=== PATIENT | female | born 1985 | race African-American/Black ===

== ENCOUNTER 2017-02-12 22:11 | Inpatient (IN) | payer MEDICAID, OTHER ==
[~2017-02-12] VITALS: Ht 160 cm; Wt 119.3 kg
--- NOTE | 2017-02-12 22:15 | NUR ---
32 YO FEMALE BB RA. PER EMS, PT WAS FOUND BY PSYCHIATRIC FACILITY NON RESPONSIVE, YELLING NON PURPOSEFUL WORDS, SWINGING ARMS AROUND. PER NURSE PT MAY HAVE TOOK AN UNKNOWN AMOUNT OF UNKNOWN MEDICATION. PT DS TO ER BED, SKIN WARM AND DRY, RR EVEN AND UNLABORED. PT IS NON VERBALE AT THIS TIME, NOT FOLLING ANY OF OUR COMANDS. PT GOWNED, PLACED ON LINE CONSTRUCTION SUPERVISOR. AWAITING ORDERS FROM PROVIDER, WILL CONTINUE TO MONITOR
--- NOTE | 2017-02-12 22:31 | NUR ---
MEDICATED PT ORDERED
[2017-02-12 22:42] LABS: BASOPHILS # (AUTO) 0.1 /CMM (0.0-0.2); BASOPHILS % (AUTO) 0.5 % (0.0-2.0); EOSINOPHILS # (AUTO) 0.2 /CMM (0.0-0.7); EOSINOPHILS % (AUTO) 1.5 % (0.0-6.0); HEMATOCRIT 37 % (33-45); HEMOGLOBIN 11.6 g/dL (11.5-14.8); LYMPHOCYTES # (AUTO) 5.2 /CMM (0.8-4.8); LYMPHOCYTES % (AUTO) 38.8 % (20.0-44.0); MEAN CORPUSCULAR HEMOGLOBIN 24 PG (26.0-33.0); MEAN CORPUSCULAR HGB CONC 31 g/dl (31.0-36.0); MEAN CORPUSCULAR VOLUME 76 fL (82-100); MONOCYTES % (AUTO) 7.4 % (2.0-12.0); NEUTROPHILS # (AUTO) 6.9 /CMM (1.8-8.9); NEUTROPHILS % (AUTO) 51.8 % (43.0-81.0); PLATELET COUNT (AUTO) 316 /CMM (150-450); RDW COEFFICIENT OF VARIATION 19.4 (11.5-15.0); RED BLOOD CELL COUNT(AUTO) 4.94 MIL/uL (4.0-5.2); WHITE BLOOD COUNT (AUTO) 13.4 K/uL (4.3-11.0)
[2017-02-12 22:43] LABS: APPEARANCE,URINE CLEAR (CLEAR); BILIRUBIN,URINE NEGATIVE (NEGATIVE); BLOOD, URINE NEGATIVE Ery/uL (NEGATIVE); KETONES,URINE NEGATIVE (NEGATIVE); LEUKOCYTE ESTERASE ,URINE NEGATIVE (NEGATIVE); NITRITE, URINE NEGATIVE (NEGATIVE); PH,URINE 8.5 (5.0-8.0); PROTEIN,URINE NEGATIVE (NEGATIVE); UGLUCOSE NEGATIVE (NEGATIVE); UROBILINOGEN,URINE 0.2 EU/dL (0.2)
[2017-02-12 22:49] LABS: COLOR,URINE STRAW (YELLOW)
[2017-02-12 22:52] LABS: PREGNANCY TEST URINE QUAL NEGATIVE (NEGATIVE)
[2017-02-12 22:53] LABS: CALCIUM, SERUM 8.9 mg/dL (8.5-10.1); CARBON DIOXIDE 23 mmol/L (21-32); CHLORIDE 105 mmol/L (98-107); CREATININE 0.9 mg/dL (0.6-1.3); GLUCOSE 121 mg/dL (74-106); POTASSIUM 3.7 mmol/L (3.5-5.1); SODIUM SERUM 145 mmol/L (136-145); UREA NITROGEN, BLOOD 10 mg/dL (7-18)
[2017-02-12 22:54] LABS: INR 1.01 (0.87-1.13); PROTHROMBIN TIME 10.8 SECS (9.5-12.7)
[2017-02-12 23:00] LABS: ACETAMINOPHEN 0 ug/ml (10-30); ALANINE AMINOTRANSFERASE 21 U/L (12-78); ALBUMIN 3.9 g/dL (3.4-5.0); ALCOHOL, BLOOD < 3 mg/dL (0-0); ALKALINE PHOSPHATASE 73 U/L (46-116); ASPARTATE AMINOTRANSFERASE 12 U/L (15-37); BILIRUBIN,DIRECT 0.1 mg/dL (0.0-0.2); BILIRUBIN,TOTAL 0.2 mg/dL (0.2-1.0); SALICYLATE 2.5 mg/dL (2.8-20.0); TOTAL PROTEIN, SERUM 7.8 g/dL (6.4-8.2); TROPONIN I < 0.017 ng/mL (0.00-0.056)
[2017-02-12 23:07] LABS: SERUM AMMONIA 210 umol/L (11-32)
[2017-02-13] VITALS (8 sets, daily range): BP systolic 129–154; BP diastolic 74–96
--- NOTE | 2017-02-13 00:20 | NUR ---
NG TUBE PLACED PER ORDER MD VILLASENOR. 16F 65CM AT THE LIP
--- NOTE | 2017-02-13 02:10 | NUR ---
[facility] RN ADMITTING NOTES PATIENT ARRIVED ON UNIT VIA GURNEY TO RM 103. RECEIVED REPORT FROM JOSE FOX. PATIENT AO X1 W/ CONFUSION. BREATHING EVEN AND UNLABORED, NO RESPIRATORY DISTRESS NOTED, ON ROOM AIR. ON TELE SINUS RHYTHM W/ PULSES PRESENT. SKIN INTACT AND WARM TO TOUCH. LEFT AC IV SITE CDI, NO COMPLICATIONS NOTED. SAFETY MEASURES IN PLACE W/ SIDE RAILS UP, BED LOCKED AND IN LOWEST POSITION. ALL NEEDS MET @ THIS TIME. WILL CONTINUE TO MONITOR.
--- NOTE | 2017-02-13 02:18 | NUR ---
TRANSPORTED PT TO [facility] B[facility] WITHOUT INCIDENT
--- NOTE | 2017-02-13 02:30 | NUR ---
[facility] RN NOTES PATIENT AGITATED AND TRYING TO PULL OUT NGT. SPOKE W/ DR PEREZ W/ ORDERS FOR RESTRAINT. BILATERAL SOFT RESTRAINTS APPLIED.
[2017-02-13 06:52] LABS: SERUM AMMONIA 53 umol/L (11-32)
--- NOTE | 2017-02-13 07:40 | NUR ---
[facility] INITIAL NOTE RECEIVED PT IN BED, A/O X1, OPENS EYES TO NAME, DOES NOT FOLLOW COMMANDS, UNABLE TO MAKE NEEDS KNOWN, PT IS ON RA ,SATING 100%, NO S/S OF RESP.DISTRESS OR SOB NOTED AT THIS TIME, BREATHING IS UNLABORED AND EVEN, PT IS ON TELE MONITOR SHOWING SR @85 BPM, NO S/S OF CHEST PAIN OR DISCOMFORT AT THIS TIME, PT HAS L NGT, CLAMPED, FLUSHING WELL, PT HAS BILATERAL WRIST RESTRAINTS, RELEASED AND SKIN CHECK COMPLETED, LAC #18G, RUNNING NS @75ML/HR, C/D/I/PATENT, FLUSHING WELL, NO S/S OF INFECTION/ INFILTRATION NOTED AT THIS TIME, PT IS CURRENTLY NPO AT THIS TIME, ALL SAFETY MEASURES IN PLACE AT ALL TIMES, CALL LIGHT WITHIN EASY REACH, WILL MONITOR PT CLOSELY FOR CHANGES
[2017-02-13 07:55] LABS: VALPROIC ACID 79 ug/mL (50-100)
[2017-02-13] MEDS ORDERED: METF500T4 PO (09:32)
[2017-02-13] MEDS ORDERED: BENA5TAB2 PO (09:32)
[2017-02-13] MEDS ORDERED: LEVO75TA7 PO (09:32)
[2017-02-13] MEDS ORDERED: HYDR-552 PO (09:32)
[2017-02-13] MEDS ORDERED: TRAM50TA2 PO (09:32)
[2017-02-13] MEDS ORDERED: ARIP30TA PO (09:32)
[2017-02-13] MEDS ORDERED: ESCI20TA PO (09:32)
[2017-02-13] MEDS ORDERED: CHLO10TA5 PO (09:32)
[2017-02-13] MEDS ORDERED: METO-295 PO (09:32)
[2017-02-13 09:35] LABS: SERUM AMMONIA 22 umol/L (11-32)
[2017-02-13 09:42] LABS: VALPROIC ACID 88 ug/mL (50-100)
--- NOTE | 2017-02-13 10:04 | NUR ---
KARO contacted [facility] and spoke to Berna who informed KARO that they will accept pt. back once pt. is medically cleared. Berna requested for KARO to fax clinicals.
--- NOTE | 2017-02-13 10:28 | NUR ---
SW attempted to meet with pt. bedside for a social service consult and to inquire with pt. if she would like to go back to [facility] psychiatric facility. SW was unable to assess pt. since she was unable to follow commands and was asleep. SW attempted to wake pt. up but was not successful. SW to follow up later this afternoon to reassess.
--- NOTE | 2017-02-13 11:40 | NUR ---
[facility] NOTE NG TUBE REMOVED, PT IS VERBALIZING SHE WANTS TO HARM HERSELF BUT HAS NO PLAN. AWARE
[2017-02-13 11:43] LABS: BASOPHILS # (AUTO) 0.1 /CMM (0.0-0.2); BASOPHILS % (AUTO) 0.3 % (0.0-2.0); EOSINOPHILS # (AUTO) 0.1 /CMM (0.0-0.7); EOSINOPHILS % (AUTO) 0.9 % (0.0-6.0); HEMATOCRIT 36 % (33-45); HEMOGLOBIN 11.3 g/dL (11.5-14.8); LYMPHOCYTES # (AUTO) 4.7 /CMM (0.8-4.8); LYMPHOCYTES % (AUTO) 31.1 % (20.0-44.0); MEAN CORPUSCULAR HEMOGLOBIN 24 PG (26.0-33.0); MEAN CORPUSCULAR HGB CONC 32 g/dl (31.0-36.0); MEAN CORPUSCULAR VOLUME 75 fL (82-100); MONOCYTES # (AUTO) 1.3 /CMM (0.1-1.30); MONOCYTES % (AUTO) 8.7 % (2.0-12.0); NEUTROPHILS # (AUTO) 8.9 /CMM (1.8-8.9); PLATELET COUNT (AUTO) 302 /CMM (150-450); RDW COEFFICIENT OF VARIATION 19.5 (11.5-15.0); RED BLOOD CELL COUNT(AUTO) 4.76 MIL/uL (4.0-5.2); WHITE BLOOD COUNT (AUTO) 15.1 K/uL (4.3-11.0)
[2017-02-13 11:47] LABS: CALCIUM, SERUM 8.5 mg/dL (8.5-10.1); CREATININE 0.7 mg/dL (0.6-1.3); POTASSIUM 4.7 mmol/L (3.5-5.1)
--- NOTE | 2017-02-13 12:00 | NUR ---
[facility] NOTE KEEGAN QUIROZ MADE ROUNDS, AWARE OF ALL LABS AND RESULTS, MD AWARE OF PTS STATUS, PSYCH CONSULT AND 1:1 SITTER ORDERED.
[2017-02-13 13:11] LABS: SERUM AMMONIA 13 umol/L (11-32)
[2017-02-13 13:15] LABS: VALPROIC ACID 86 ug/mL (50-100)
--- NOTE | 2017-02-13 16:27 | NUR ---
[facility] NOTE MRSA CULTURE TAKEN, URINE COLLECTED AND SENT TO LAB
[2017-02-13 17:48] LABS: SERUM AMMONIA 43 umol/L (11-32)
[2017-02-13 19:13] LABS: VALPROIC ACID 83 ug/mL (50-100)
--- NOTE | 2017-02-13 19:15 | NUR ---
RN:TD: PT RECEIVED IN BED, ALERT X2. PT CONFUSED, DOES NOT KNOW WHY SHE IS IN THE HOSPITAL. PT CURRENTLY DENIES ANY SUICIDAL IDEATION AT THIS TIME. PT STATES "I WILL BE GOOD" AND REQUESTS A JUICE. 1:1 SITTER AT BEDSIDE. SUICIDE/FALL/ASPIRATION PRECAUTIONS IN PLACE. WILL CONTINUE TO MONITOR CLOSELY.
[2017-02-13 20:31] LABS: VALPROIC ACID 72 ug/mL (50-100)
[2017-02-13 20:32] LABS: SERUM AMMONIA 28 umol/L (11-32)
[2017-02-14] VITALS: BP 134/85
[2017-02-14 04:00] VITALS: BP 118/77
--- NOTE | 2017-02-14 07:15 | NUR ---
SURFACE MINER NOTES RECEIVED PATIENT AWAKE ALERT X 1 -2 RE ORIENTATION PROVIDED , DELAYED SPEECH , DENIES SUICIDAL AND HOMICIDAL IDEATION AT THIS TIME , NOT IN ACUTE DISTRESS , DENIES SOB AND DISCOMFORT AT THIS TIME WITH SPO2 OF 99% VIA RA , SR 63 ON TELE MONITOR , IV OF L AC # 18 PATENT AND INTACT WITH 1/2 NS @ 75ML/HR INFUSING WELL , ALL NEEDS ATTENDED , BED ON LOW AND LOCKED POSITION , SIDE RAILS X2 , HOB @ 35 , ALARMS MADE AUDIBLE , WILL CONTINUE TO MONITOR
[2017-02-14 07:38] LABS: BASOPHILS % (AUTO) 0.4 % (0.0-2.0); EOSINOPHILS # (AUTO) 0.1 /CMM (0.0-0.7); EOSINOPHILS % (AUTO) 1.3 % (0.0-6.0); HEMATOCRIT 37 % (33-45); LYMPHOCYTES # (AUTO) 4.4 /CMM (0.8-4.8); LYMPHOCYTES % (AUTO) 44.8 % (20.0-44.0); MEAN CORPUSCULAR HEMOGLOBIN 24 PG (26.0-33.0); MEAN CORPUSCULAR HGB CONC 33 g/dl (31.0-36.0); MEAN CORPUSCULAR VOLUME 75 fL (82-100); MONOCYTES # (AUTO) 0.7 /CMM (0.1-1.30); MONOCYTES % (AUTO) 7.4 % (2.0-12.0); NEUTROPHILS # (AUTO) 4.6 /CMM (1.8-8.9); NEUTROPHILS % (AUTO) 46.1 % (43.0-81.0); PLATELET COUNT (AUTO) 306 /CMM (150-450); RED BLOOD CELL COUNT(AUTO) 4.91 MIL/uL (4.0-5.2); WHITE BLOOD COUNT (AUTO) 9.9 K/uL (4.3-11.0)
[2017-02-14 08:00] VITALS: BP 115/94
[2017-02-14 08:11] LABS: CALCIUM, SERUM 8.3 mg/dL (8.5-10.1); CREATININE 0.6 mg/dL (0.6-1.3); MAGNESIUM 1.8 mg/dL (1.8-2.4); PHOSPHORUS 4.4 mg/dL (2.5-4.9); POTASSIUM 4.3 mmol/L (3.5-5.1)
--- NOTE | 2017-02-14 08:45 | NUR ---
WOUND CARE CONSULT: PT VERY DROWSY AND WEARING DIAPER (CLEAN AND DRY). CURRENT CASE SCORE 14. PT NOTED TO HAVE RESOLVED BLISTERS TO BILATERAL GREAT TOES, NO DRAINAGE, REDNESS OR TENDERNESS. SACRAL SCARRING NOTED. ALL SKIN PROTECTION MEASURES IN PLACE AND DISCUSSED WITH NURSING STAFF. WILL SEE PRN. LAKE IN AGREEMENT WITH PLAN OF CARE. Addendum: 02/14/17 at 0846 by DI GRUBER WNDNU Amended: Links added.
--- NOTE | 2017-02-14 10:49 | NUR ---
KARO contacted Berna in intake at [facility] to inquire if they would take pt. Berna informed SW they would and to fax clinicals. KARO faxed clinicals at .
--- NOTE | 2017-02-14 12:10 | NUR ---
[facility] RN NOTES DR MADRID AT BEDSIDE , DISCUSSED LABS , PT IS MORE AWAKE ALERT X 2-3 , ROUTINE PSYCH MEDS GIVEN , DENIES SUICIDAL AND HOMICIDAL IDEATION AT THIS TIME , AFEBRILE , V/S STABLE , NOTED WITH UNSTEADY GAIT DUE TO LOWER EXTREMITY WEAKNESS , PER MD ORDER PT EVAL , MEDICALLY CLEARED , BUT WILL STAY FOR ONE MORE DAY PER MD , NOTIFIED REGARDING TRANSFER PLAN TO [facility] MD AWARE .
--- NOTE | 2017-02-14 13:06 | NUR ---
[facility] RN NOTES RECEIVED A CALL FROM [facility] , DISCUSSED LABS , PT IS MORE AWAKE ALERT ORIENTED 2-3 ,
--- NOTE | 2017-02-14 15:12 | NUR ---
[facility] RN NOTES DR JOSEPH AT BEDSIDE , SEEN AND EVALUATED THE PT , DISCUSSED PT LABS , HISTORY , PT DENIES ANY SUICIDAL AND HOMICIDAL IDEATION AT THIS TIME , VERIFIED IF SHE WANTS TO DC 1:1 [facility] , [facility] FAXED HOME MEDS , VERIFIED MEDICATIONS WITH DR JOSEPH PER CONTINUE CHLORPROMAZINE 100MG BID AND HS , RESTORIL 15MG HS PRN , AND VERIFY WITH DR CORTES IF SHE WANTS TO CONTINUE DEPAKOTE EXTENDED RELEASE 500MG TID , ORDERS CARRIED OUT Addendum: 02/14/17 at 1516 by CANDY SOLIZ RN PATIENT IS MORE AWAKE ALERT X2-3 .
--- NOTE | 2017-02-14 15:21 | NUR ---
[facility] RN NOTES CALLED MEDICATION RECON NURSE TO UPDATE HOME MEDICATIONS , [facility] FA[facility] HOME MEDS
[2017-02-14] MEDS ORDERED: DIVA500T7 PO (15:34)
[2017-02-14] MEDS ORDERED: D-ME118S12 PO (15:34)
[2017-02-14] MEDS ORDERED: LORA1TAB82 PO (15:34)
[2017-02-14] MEDS ORDERED: LEVO100T9 PO (15:34)
[2017-02-14] MEDS ORDERED: TEMA15CA PO (15:34)
[2017-02-14] MEDS ORDERED: CHLO100T24 PO ×2 (15:34)
[2017-02-14] MEDS ORDERED: HYDR-3658 PO (15:34)
[2017-02-14] MEDS ORDERED: FOLI1TAB16 PO (15:34)
[2017-02-14 16:00] VITALS: BP 125/75
--- NOTE | 2017-02-14 19:15 | NUR ---
MS RN NOTES RECEIVED ON BED A/O X 2-3.ABLE TO VERBALIZED NEEDS.PRESENT IVF INFUSING WELL VIA IV PUMP ON LEFT AC,SITE PATENT.DVT PUMP IN USED FOR DVT PROPHYLAXIS.SITTER AT BEDSIDE FOR SAFETY,AND PATIENT ON SUICIDAL PRECAUTION.CALL LIGHT IN REACH,NEEDS ANTICIPATED.
[2017-02-14 20:00] VITALS: BP 124/95
[2017-02-14 20:07] VITALS: BP 124/95
--- NOTE | 2017-02-14 21:10 | NUR ---
MS1 RN NOTES C/O INSOMNIA.AMBIEN 5MG PO GIVEN.
--- NOTE | 2017-02-15 02:00 | NUR ---
MS1 RN NOTES SOUND ASLEEP,SITTER AT BEDSIDE.
[2017-02-15 04:00] VITALS: BP 130/87
[2017-02-15 04:24] VITALS: BP 130/87
--- NOTE | 2017-02-15 07:10 | NUR ---
RN INITIAL NOTE PATIENT RECEIVED IN BED, AWAKE, ALERT AND ORIENTED. ABLE TO MAKE NEEDS KNOWN. SITTER AT BEDSIDE. NO S/S OF PAIN OR DISCOMFORT. DENIES PAIN AT THIS TIME. RESPIRATIONS ARE EVEN AND UNLABORED. NO S/S OF RESPIRATORY DISTRESS OR SOB. SATING WELL ON ROOM AIR. IV SITE FLUSHED, PATENT. SKIN IS WARM AND DRY TO TOUCH. SAFETY PRECAUTIONS IMPLEMENTED. BED IN LOCKED, LOW POSITION WITH TWO SIDE RAILS UP. CALL LIGHT AND BELONGINGS WITHIN EASY REACH. POSSIBLE DC TODAY. WILL MONITOR CLOSELY
--- NOTE | 2017-02-15 07:13 | NUR ---
MS1 RN NOTES SLEPT MOST OF THE NIGHT,MORE ALERT,ABLE TO VERBALIZED NEEDS.POSSIBLE D/C BACK TO [facility] TODAY.IN NO ACUTE DISTRESS.ENDORSED TO MONICA FOX FOR AJ.
[2017-02-15 08:00] VITALS: BP 130/78
[2017-02-15 08:09] LABS: BASOPHILS # (AUTO) 0.1 /CMM (0.0-0.2); BASOPHILS % (AUTO) 0.5 % (0.0-2.0); EOSINOPHILS # (AUTO) 0.1 /CMM (0.0-0.7); EOSINOPHILS % (AUTO) 1.2 % (0.0-6.0); HEMATOCRIT 38 % (33-45); HEMOGLOBIN 12.3 g/dL (11.5-14.8); LYMPHOCYTES # (AUTO) 5.9 /CMM (0.8-4.8); LYMPHOCYTES % (AUTO) 47.9 % (20.0-44.0); MEAN CORPUSCULAR HEMOGLOBIN 24 PG (26.0-33.0); MEAN CORPUSCULAR HGB CONC 32 g/dl (31.0-36.0); MEAN CORPUSCULAR VOLUME 75 fL (82-100); MONOCYTES # (AUTO) 1.2 /CMM (0.1-1.30); MONOCYTES % (AUTO) 9.5 % (2.0-12.0); NEUTROPHILS % (AUTO) 40.9 % (43.0-81.0); PLATELET COUNT (AUTO) 304 /CMM (150-450); RDW COEFFICIENT OF VARIATION 19.6 (11.5-15.0); RED BLOOD CELL COUNT(AUTO) 5.11 MIL/uL (4.0-5.2); WHITE BLOOD COUNT (AUTO) 12.3 K/uL (4.3-11.0)
[2017-02-15 08:21] LABS: CREATININE 0.6 mg/dL (0.6-1.3); POTASSIUM 4.1 mmol/L (3.5-5.1)
[2017-02-15 08:47] LABS: MAGNESIUM 1.6 mg/dL (1.8-2.4); PHOSPHORUS 4.4 mg/dL (2.5-4.9)
--- NOTE | 2017-02-15 09:49 | NUR ---
KARO faxed clinicals to intake at [facility] .
--- NOTE | 2017-02-15 10:10 | NUR ---
KARO spoke to Luisa in intake at [facility] inquiring if she received clinicals that KARO faxed to her. Luisa confirmed that she received the clinicals. KARO informed Luisa she will fax her the discharge note stating " pt. is medically cleared" once KARO receives the discharge order from Dr. Flores.
--- NOTE | 2017-02-15 10:14 | NUR ---
KARO met with pt. to confirm discharge plan to [facility] for continuation of psychiatric care. Pt. is alert and oriented x 3. Pt. appears anxious and states she wants to go back to [facility] [place] [facility]. Pt. continues to have suicidal ideations with no plan at this time. Pt. has a sitter bedside. Pt. denies homicidal ideations and visual hallucinations at this time. Pt. states she is having auditory hallucinations at this time which are informing her to "jump off the floor". Pt. appears to have some developmental delays, however pt. states she is not a consumer of the [facility]. Pt. is homeless and has been homeless since August. Prior to being homeless, pt. was residing at a [facility], which was converted to [facility] clients only. Pt. states she has no family support. Pt. has a boyfriend Kory Brown. His contact number is . Pt. states she would like to speak to him. KARO informed pt. the sitter will assist pt. in calling her boyfriend. Pt. has had several psychiatric hospitalizations in the past. Pt. has a psychiatric diagnosis of Schizophrenia and her medications include Abilify 30mg, Lexapro 20 Mg and Thorazine, unknown dosage amount. Pt. is linked with [facility] and they are assisting pt. in finding appropriate housing. Pt. was evaluated at [facility] by psychiatrist Dr. Kendrick. No other social service needs are requested at this time. KARO informed ELAINA Johnson to have " medically cleared" stated in discharge summary. KARO contacted Nay Burton at [facility] program and left her a voicemail message inquiring if she will be able to assist pt. with services. Addendum: 02/15/17 at 1036 by DEJUAN HUDDLESTON Pt. informed SW she does not drink alcohol or consume drugs. Pt. smokes a pack of cigarettes per day. Pt. is her own decision maker and does not have an advance healthcare directive.
--- NOTE | 2017-02-15 14:38 | NUR ---
KARO received a call back from Nay Burton at [facility]ip[facility] program who informed SW she will come around 4PM to assess patient. KARO called [facility] ELAINA Johnson and informed her regarding Nay coming to assess patient.
[2017-02-15 16:00] VITALS: BP 123/71
[2017-02-15 16:44] LABS: APPEARANCE,URINE CLEAR (CLEAR); BILIRUBIN,URINE NEGATIVE (NEGATIVE); BLOOD, URINE NEGATIVE Ery/uL (NEGATIVE); COLOR,URINE YELLOW (YELLOW); KETONES,URINE NEGATIVE (NEGATIVE); LEUKOCYTE ESTERASE ,URINE NEGATIVE (NEGATIVE); NITRITE, URINE NEGATIVE (NEGATIVE); PROTEIN,URINE NEGATIVE (NEGATIVE); UGLUCOSE NEGATIVE (NEGATIVE); UROBILINOGEN,URINE 0.2 EU/dL (0.2)
--- NOTE | 2017-02-15 19:01 | NUR ---
RN CLOSING NOTE ALL MD ORDERS CARRIED OUT. PATIENT KEPT CLEAN AND DRY. SAFETY PRECAUTIONS IN PLACE AT ALL TIMES. REPORT WILL BE GIVEN TO PM RN FOR AJ
--- NOTE | 2017-02-15 19:30 | NUR ---
RN NOTES RECEIVED PT. AWAKE ON BED, A/OX2-3, SITTER AT BEDSIDE, AMBULATE WITH ASSIST, DENEIS PAIN, NO SOB, CALL LIGHT WITHIN REACH, SIDERALS UPX2 CONTINUE TO MONITOR
--- NOTE | 2017-02-15 20:00 | NUR ---
RN NOTES OFFERED PT. TO BE HOOKED BACK TO IV FLUID BUT PT. IS REFUSING
[2017-02-15 20:30] VITALS: BP 135/78
--- NOTE | 2017-02-16 02:45 | NUR ---
RN NOTES 8INFORMED DR. STAN ANGELO THAT PT IS REFUSING IV FLUID AND PT IS TAKING PO WELL. DR. STAN ANGELO D/C THE IV FLUID, ORDER NOTED AND CARRIED OUT
[2017-02-16 06:00] VITALS: BP 120/70
--- NOTE | 2017-02-16 06:22 | NUR ---
RN NOTES PT IS AWAKE, MORNING CARE RENDERED, DENIES PAIN, NO SOB, SITTER AT BEDSIDE, PT. NEEDS ATTENDED. ENDORSED TO DAYSHIFT NURSE FOR CONTINUITY OF CARE
[2017-02-16 07:08] LABS: BASOPHILS # (AUTO) 0.1 /CMM (0.0-0.2); BASOPHILS % (AUTO) 0.7 % (0.0-2.0); EOSINOPHILS # (AUTO) 0.2 /CMM (0.0-0.7); EOSINOPHILS % (AUTO) 1.4 % (0.0-6.0); HEMATOCRIT 39 % (33-45); HEMOGLOBIN 12.4 g/dL (11.5-14.8); LYMPHOCYTES # (AUTO) 5.8 /CMM (0.8-4.8); LYMPHOCYTES % (AUTO) 44.9 % (20.0-44.0); MEAN CORPUSCULAR HEMOGLOBIN 24 PG (26.0-33.0); MEAN CORPUSCULAR HGB CONC 32 g/dl (31.0-36.0); MEAN CORPUSCULAR VOLUME 75 fL (82-100); MONOCYTES # (AUTO) 1.3 /CMM (0.1-1.30); MONOCYTES % (AUTO) 9.8 % (2.0-12.0); NEUTROPHILS # (AUTO) 5.5 /CMM (1.8-8.9); NEUTROPHILS % (AUTO) 43.2 % (43.0-81.0); PLATELET COUNT (AUTO) 291 /CMM (150-450); RDW COEFFICIENT OF VARIATION 19.5 (11.5-15.0); RED BLOOD CELL COUNT(AUTO) 5.13 MIL/uL (4.0-5.2); WHITE BLOOD COUNT (AUTO) 12.8 K/uL (4.3-11.0)
--- NOTE | 2017-02-16 07:10 | NUR ---
RN INITIAL NOTE PATIENT RECEIVED SITTING UP IN BED. AWAKE, ALERT AND ORIENTED. ABLE TO MAKE NEEDS KNOWN. NO S/S OF PAIN OR DISCOMFORT. DENIES PAIN AT THIS TIME. RESPIRATIONS ARE EVEN AND UNLABORED. NO S/S OF RESPIRATORY DISTRESS OR SOB. SATING WELL ON ROOM AIR. IV SITE FLUSHED, PATENT. SKIN IS WARM AND DRY TO TOUCH. SAFETY PRECAUTIONS IMPLEMENTED. BED IN LOCKED, LOW POSITION. SITTER AT BEDSIDE. WILL MONITOR CLOSELY.
[2017-02-16 07:30] LABS: CALCIUM, SERUM 8.8 mg/dL (8.5-10.1); CREATININE 0.7 mg/dL (0.6-1.3); MAGNESIUM 1.9 mg/dL (1.8-2.4); PHOSPHORUS 5.1 mg/dL (2.5-4.9); POTASSIUM 4.1 mmol/L (3.5-5.1)
[2017-02-16 08:00] VITALS: BP 120/70
[2017-02-16] MEDS ORDERED: LEVO75TA PO (09:47)
[2017-02-16 16:00] VITALS: BP 125/69
--- NOTE | 2017-02-16 18:17 | NUR ---
RN CLOSING NOTE PATIENT DISCHARGED TO [facility] IN [place]. LEFT VIA AMBULANCE. REPORT CALLED INTO RUDDY EDDY. ALL MD ORDERS CARRIED OUT. IV SITE DISCONTINUED.
== END 2017-02-16 17:21 | DRG 812 ==
LOC: ER 22:12 → TELE1 02-13 01:34 → TELE-TD 02-13 02:36 → MEDSG1 02-14 11:37
PROVIDERS: ADMIT Internal Medicine; ATTEND Internal Medicine
DX: T42.6X1A Poisoning by other antiepileptic and sedative-hypnotic drugs, accidental (unintentional), initial encounter (principal); G93.41 Metabolic encephalopathy; E72.20 Disorder of urea cycle metabolism, unspecified; R45.851 Suicidal ideations; R56.9 Unspecified convulsions; F32.9 Major depressive disorder, single episode, unspecified; E11.9 Type 2 diabetes mellitus without complications; R41.83 Borderline intellectual functioning; Z59.0 Homelessness; N32.81 Overactive bladder; K21.9 Gastro-esophageal reflux disease without esophagitis; J45.909 Unspecified asthma, uncomplicated; I10 Essential (primary) hypertension; G89.29 Other chronic pain; F20.0 Paranoid schizophrenia; E03.9 Hypothyroidism, unspecified; Z88.1 Allergy status to other antibiotic agents; Z88.0 Allergy status to penicillin; Z88.8 Allergy status to other drugs, medicaments and biological substances; Y92.129 Unspecified place in nursing home as the place of occurrence of the external cause; Z68.42 Body mass index [BMI] 45.0-49.9, adult
CPT/HCPCS: 36415; 70450-TC; 71010-TC; 80048-TC; 80076-TC; 80164-TC; 80305; 81000-TC; 82140-TC; 82962-TC; 83735-TC; 84100-TC; 84484-TC; 84703-TC; 85025-TC; 85730-TC; 87040-TC; 87081-TC; 87086-TC; A4606; A6403; G0480; J2060; J2405; J3475; J3490; J7030; Q0161; Z7610

== ENCOUNTER 2017-09-16 09:33 | Emergency (ER) | payer MEDICAID, OTHER ==
[~2017-09-16] VITALS: Ht 170.2 cm; Wt 122.0 kg
[~2017-09-16 09:33] MED LIST: ARIP30TA3 PO; BENA5TAB5 PO; CHLO100T24 PO; D-ME118S12 PO; ESCI20TA PO; FOLI1TAB16 PO; HYDR-3980 PO; LEVO100T9 PO; LORA-259 PO; METF-440 PO; METO-295 PO; TEMA15CA PO; TRAM50TA2 PO
--- NOTE | 2017-09-16 09:33 | NUR ---
ABD PAIN, N/V X 2 DAYS TAKING ZOFRAN WITH NO RELIEF
[2017-09-16] MEDS ORDERED: ONDANSETRON HCL/PF 4 MG/2 ML VIAL ONE (09:55)
[2017-09-16] MEDS ORDERED: IV NS 0.9% 1,000 ML BAG IV ONE (10:00)
[2017-09-16] MEDS ORDERED: ONDANSETRON HCL/PF 4 MG/2 ML VIAL IVP ONE (10:00)
[2017-09-16 10:02] LABS: BASOPHILS # (AUTO) 0.1 /CMM (0.0-0.2); BASOPHILS % (AUTO) 1.3 % (0.0-2.0); EOSINOPHILS % (AUTO) 3.1 % (0.0-6.0); HEMATOCRIT 38 % (33-45); HEMOGLOBIN 12.2 g/dL (11.5-14.8); LYMPHOCYTES # (AUTO) 3.6 /CMM (0.8-4.8); LYMPHOCYTES % (AUTO) 37.9 % (20.0-44.0); MEAN CORPUSCULAR HGB CONC 32 g/dl (31.0-36.0); MEAN CORPUSCULAR VOLUME 70 fL (82-100); MONOCYTES # (AUTO) 0.9 /CMM (0.1-1.30); NEUTROPHILS # (AUTO) 4.6 /CMM (1.8-8.9); NEUTROPHILS % (AUTO) 47.7 % (43.0-81.0); PLATELET COUNT (AUTO) 300 /CMM (150-450); RDW COEFFICIENT OF VARIATION 21.1 (11.5-15.0); RED BLOOD CELL COUNT(AUTO) 5.49 MIL/uL (4.0-5.2); WHITE BLOOD COUNT (AUTO) 9.5 K/uL (4.3-11.0)
[2017-09-16 10:09] LABS: CALCIUM, SERUM 8.9 mg/dL (8.5-10.1); CREATININE 0.5 mg/dL (0.6-1.3)
[2017-09-16 10:14] LABS: ALBUMIN 3.6 g/dL (3.4-5.0); BILIRUBIN,DIRECT 0.1 mg/dL (0.0-0.2); BILIRUBIN,TOTAL 0.3 mg/dL (0.2-1.0); TOTAL PROTEIN, SERUM 7.6 g/dL (6.4-8.2)
[2017-09-16 10:33] LABS: APPEARANCE,URINE Slightly Cloudy (CLEAR); BILIRUBIN,URINE SMALL (NEGATIVE); BLOOD, URINE Negative Ery/uL (NEGATIVE); COLOR,URINE Yellow (YELLOW); KETONES,URINE Negative (NEGATIVE); LEUKOCYTE ESTERASE ,URINE Negative (NEGATIVE); NITRITE, URINE Negative (NEGATIVE); PROTEIN,URINE Negative (NEGATIVE); UGLUCOSE Negative (NEGATIVE)
[2017-09-16 10:40] LABS: RBC,URINE 0-2 /HPF (0-2)
[2017-09-16 10:41] LABS: BACTERIA,URINE 2+ /HPF (None Seen); SQUAMOUS EPITHELIAL CELL,UR Many /HPF (None Seen)
[2017-09-16 10:52] LABS: EOSINOPHILS % (MANUAL) 1 % (0-4); LYMPHOCYTES % (MANUAL) 38 % (16-48); MONOCYTES % (MANUAL) 12 % (0-11.0); NEUTROPHILS % (MANUAL) 49 (42-76)
--- NOTE | 2017-09-16 10:57 | NUR ---
Patient discharged to home in stable condition. Written and verbal after care instructions given. Patient verbalizes understanding of instruction.
--- NOTE | 2017-09-16 10:57 | NUR ---
IV removed. Catheter intact and site benign. Pressure and 4x4 applied to site. No bleeding noted.
[2017-09-16 10:58] VITALS: BP 130/75
== END 2017-09-16 11:00 | disposition home or self-care (01) ==
LOC: ER 09:35
DX: R11.2 Nausea with vomiting, unspecified (principal); E03.9 Hypothyroidism, unspecified; E11.9 Type 2 diabetes mellitus without complications; F32.9 Major depressive disorder, single episode, unspecified; I10 Essential (primary) hypertension; F17.200 Nicotine dependence, unspecified, uncomplicated; K21.9 Gastro-esophageal reflux disease without esophagitis; N32.81 Overactive bladder; Z88.0 Allergy status to penicillin; Z88.8 Allergy status to other drugs, medicaments and biological substances
CPT/HCPCS: 36415; 80048-TC; 80076-TC; 81000-TC; 83690-TC; 84703-TC; 85025-TC; 87086-TC; A4606; J2405; J7030; Z7610

== ENCOUNTER 2018-03-10 12:09 | Emergency (ER) | payer OTHER ==
[~2018-03-10] VITALS: Ht 167.6 cm; Wt 95.3 kg
[2018-03-10] MEDS ORDERED: IV NS 0.9% 1,000 ML BAG IV ONE (12:30)
[2018-03-10] MEDS ORDERED: OLANZAPINE 10 MG VIAL IM ONE ×2 (12:47→13:00)
--- NOTE | 2018-03-10 12:50 | NUR ---
BIBRA60 PT STATES "I OVERDOSED ON 40 PILLS OF BUSPIRONE 15MG". NOTED AGITATED WHEN BEING EVALUATED. KICKING AND SCREAMING. RESTRAINTS PLACED SAFELY PER MD ORDER. VSS. SAFETY AND COMFORT MEASURES PROVIDED. WILL MONITOR.
[2018-03-10] MEDS ORDERED: LORAZEPAM INJ 2 MG/ML VIAL IM ONE (13:00)
--- NOTE | 2018-03-10 13:10 | NUR ---
IV ACCESS STARTED. BLOOD DRAWN. MEDICATED ORDERED. URINE SAMPLE OBTAINED VIA IN AND OUT CATH. URINE SAMPLE SENT.
[2018-03-10] MEDS ORDERED: LORAZEPAM INJ 2 MG/ML VIAL ONE (13:13)
[2018-03-10 13:20] LABS: BASOPHILS # (AUTO) 0.1 /CMM (0.0-0.2); BASOPHILS % (AUTO) 0.6 % (0.0-2.0); EOSINOPHILS % (AUTO) 0.4 % (0.0-6.0); HEMATOCRIT 41 % (33-45); HEMOGLOBIN 12.6 g/dL (11.5-14.8); LYMPHOCYTES # (AUTO) 4.5 /CMM (0.8-4.8); LYMPHOCYTES % (AUTO) 35.2 % (20.0-44.0); MEAN CORPUSCULAR HEMOGLOBIN 22 PG (26.0-33.0); MEAN CORPUSCULAR HGB CONC 30 g/dl (31.0-36.0); MEAN CORPUSCULAR VOLUME 73 fL (82-100); MONOCYTES # (AUTO) 1.1 /CMM (0.1-1.30); MONOCYTES % (AUTO) 8.5 % (2.0-12.0); NEUTROPHILS % (AUTO) 55.3 % (43.0-81.0); PLATELET COUNT (AUTO) 360 /CMM (150-450); RDW COEFFICIENT OF VARIATION 20.4 (11.5-15.0); RED BLOOD CELL COUNT(AUTO) 5.65 MIL/uL (4.0-5.2); WHITE BLOOD COUNT (AUTO) 12.8 K/uL (4.3-11.0)
[2018-03-10 13:23] LABS: APPEARANCE,URINE Clear (CLEAR); BILIRUBIN,URINE Negative (NEGATIVE); BLOOD, URINE Negative Ery/uL (NEGATIVE); COLOR,URINE Yellow (YELLOW); KETONES,URINE Negative (NEGATIVE); LEUKOCYTE ESTERASE ,URINE Small (NEGATIVE); NITRITE, URINE Positive (NEGATIVE); PH,URINE 6.5 (5.0-8.0); PROTEIN,URINE 30 mg/dl (NEGATIVE); UGLUCOSE Negative (NEGATIVE); UROBILINOGEN,URINE 0.2 EU/dL (0.2)
[2018-03-10 13:26] LABS: CALCIUM, SERUM 9.2 mg/dL (8.5-10.1); CARBON DIOXIDE 27 mmol/L (21-32); CHLORIDE 105 mmol/L (98-107); CREATININE 0.8 mg/dL (0.6-1.3); GLUCOSE 133 mg/dL (74-106); POTASSIUM 3.6 mmol/L (3.5-5.1); SODIUM SERUM 144 mmol/L (136-145); UREA NITROGEN, BLOOD 7 mg/dL (7-18)
[2018-03-10] MEDS ORDERED: LORAZEPAM INJ 2 MG/ML VIAL IV ONE (13:30)
[2018-03-10 13:32] LABS: RBC,URINE NONE SEEN /HPF (0-2)
[2018-03-10 13:32] LABS: ALANINE AMINOTRANSFERASE 21 U/L (12-78); ALBUMIN 3.7 g/dL (3.4-5.0); ALKALINE PHOSPHATASE 99 U/L (46-116); ASPARTATE AMINOTRANSFERASE 15 U/L (15-37); BILIRUBIN,DIRECT 0.1 mg/dL (0.0-0.2); BILIRUBIN,TOTAL 0.6 mg/dL (0.2-1.0); SALICYLATE 3.4 mg/dL (2.8-20.0); TOTAL PROTEIN, SERUM 7.5 g/dL (6.4-8.2)
[2018-03-10 13:33] LABS: BACTERIA,URINE 3+ /HPF (None Seen); SQUAMOUS EPITHELIAL CELL,UR Few /HPF (None Seen)
[2018-03-10 13:34] LABS: ACETAMINOPHEN < 2 ug/ml (10-30); ALCOHOL, BLOOD < 3 mg/dL (0-0)
--- NOTE | 2018-03-10 14:33 | NUR ---
RECEIVED A CALL FROM [facility] AND UPDATED WITH LABS, VS WITH SUGGESTIONS TO REPEAT SALICYLATE LEVELS WITHIN 1 HOUR. MD AMAYA.
--- NOTE | 2018-03-10 16:09 | NUR ---
Patient is resting comfortably in bed with eyes closed. Easily aroused. VSS
--- NOTE | 2018-03-10 17:30 | NUR ---
CALLED [facility] FOR PT.
--- NOTE | 2018-03-10 17:45 | NUR ---
PT ATE AT THE BS. CALM AND COOPERATIVE.
--- NOTE | 2018-03-10 18:41 | NUR ---
CALLED [facility] FOR TRANSPORT ETA OF 1HR WAS GIVEN. TRIP#[id number]
--- NOTE | 2018-03-10 18:51 | NUR ---
SPOKE TO SATURNINO OF [facility] AND UPDATED WITH CURRENT SALICYLATE LEVELS. PER [facility] LEVELS ARE TO BE CONCERNED OF. MADE AWARE.
--- NOTE | 2018-03-10 19:03 | NUR ---
REPORT GIVEN TO SLICK FOX OF [facility].
--- NOTE | 2018-03-10 19:12 | NUR ---
REPORT GIVEN TO LINDA FOX FOR AJ.
--- NOTE | 2018-03-10 19:26 | NUR ---
RECEIVED REPORT FROM RUDDY CONNER FOR AJ. PT RESTING IN BED WITH NO S/S OF DISTRESS NOTED. WILL CONTINUE TO MONITOR PT.
--- NOTE | 2018-03-10 20:16 | NUR ---
REPORT GIVEN TO EMS CREW FOR AJ. PT BEING TRANSFERRED ONTO EMS GURNEY. NO S/S OF DISTRESS NOTED.
--- NOTE | 2018-03-10 20:23 | NUR ---
Patient Tranfers to outside Facility Physician:PAUL Location:[facility]
[2018-03-10 20:24] VITALS: BP 128/77
== END 2018-03-10 20:26 ==
LOC: ER 12:11
DX: T43.591A Poisoning by other antipsychotics and neuroleptics, accidental (unintentional), initial encounter (principal); F20.9 Schizophrenia, unspecified; I10 Essential (primary) hypertension; K21.9 Gastro-esophageal reflux disease without esophagitis; E11.9 Type 2 diabetes mellitus without complications; F32.9 Major depressive disorder, single episode, unspecified; E03.9 Hypothyroidism, unspecified; G89.29 Other chronic pain; Z87.2 Personal history of diseases of the skin and subcutaneous tissue; Z87.448 Personal history of other diseases of urinary system; Z88.0 Allergy status to penicillin; Z88.1 Allergy status to other antibiotic agents; Z88.8 Allergy status to other drugs, medicaments and biological substances; Z79.899 Other long term (current) drug therapy; Z79.84 Long term (current) use of oral hypoglycemic drugs; Y92.89 Other specified places as the place of occurrence of the external cause
CPT/HCPCS: 36415; 80048; 80076; 80305; 80329 ×2; 81001; 84703; 85025; 87077; 87086; 87186; 93005; 96372; 96374; 99285; A4606; G0480 ×2; J2060; J3490; J7030; Z7610; 81000-TC

== ENCOUNTER 2018-03-22 22:43 | Inpatient (IN) | payer OTHER ==
[~2018-03-22] VITALS: Ht 160 cm; Wt 119.3 kg
--- NOTE | 2018-03-22 22:50 | NUR ---
PT BIB RA60 AFTER TAKING PILLS CHLORPROMAZINE. 5MG VERSED GIVEN BY RA. PT AAOX4 UNCOOPERATIVE, AND COMBATIVE. NO ACUTE DISTRESS NOTED AT THIS TIME. PT PLACED ON MONITOR
[2018-03-22 23:40] LABS: BASOPHILS % (AUTO) 0.3 % (0.0-2.0); EOSINOPHILS % (AUTO) 0.6 % (0.0-6.0); HEMATOCRIT 36 % (33-45); HEMOGLOBIN 11.2 g/dL (11.5-14.8); LYMPHOCYTES # (AUTO) 3.6 /CMM (0.8-4.8); LYMPHOCYTES % (AUTO) 28.3 % (20.0-44.0); MEAN CORPUSCULAR HGB CONC 31 g/dl (31.0-36.0); MEAN CORPUSCULAR VOLUME 74 fL (82-100); MONOCYTES # (AUTO) 0.9 /CMM (0.1-1.30); MONOCYTES % (AUTO) 7.5 % (2.0-12.0); NEUTROPHILS % (AUTO) 63.3 % (43.0-81.0); PLATELET COUNT (AUTO) 322 /CMM (150-450); RDW COEFFICIENT OF VARIATION 21.9 (11.5-15.0); RED BLOOD CELL COUNT(AUTO) 4.92 MIL/uL (4.0-5.2); WHITE BLOOD COUNT (AUTO) 12.6 K/uL (4.3-11.0)
--- NOTE | 2018-03-22 23:43 | NUR ---
PT RESTING IN BED. UNABLE TO PROVIDE URINE AT THIS TIME. AWARE.
[2018-03-22 23:46] LABS: LYMPHOCYTES % (MANUAL) 29 % (16-48); MONOCYTES % (MANUAL) 7 % (0-11.0); NEUTROPHILS % (MANUAL) 64 (42-76)
[2018-03-23 00:02] LABS: VALPROIC ACID 0 ug/mL (50-100)
[2018-03-23 00:08] LABS: CALCIUM, SERUM 8.9 mg/dL (8.5-10.1); CARBON DIOXIDE 27 mmol/L (21-32); CHLORIDE 103 mmol/L (98-107); CREATININE 0.6 mg/dL (0.6-1.3); GLUCOSE 123 mg/dL (74-106); POTASSIUM 3.1 mmol/L (3.5-5.1); SERUM AMMONIA 31 umol/L (11-32); SODIUM SERUM 140 mmol/L (136-145); UREA NITROGEN, BLOOD 9 mg/dL (7-18)
[2018-03-23 00:14] LABS: ALKALINE PHOSPHATASE 78 U/L (46-116); ASPARTATE AMINOTRANSFERASE 18 U/L (15-37); BILIRUBIN,TOTAL 0.3 mg/dL (0.2-1.0); TOTAL PROTEIN, SERUM 6.9 g/dL (6.4-8.2)
[2018-03-23 00:15] LABS: ACETAMINOPHEN < 0 ug/ml (10-30); ALANINE AMINOTRANSFERASE < 6 U/L (12-78)
[2018-03-23 00:16] LABS: ALCOHOL, BLOOD < 0 mg/dL (0-0); SALICYLATE < 0.2 mg/dL (2.8-20.0)
[2018-03-23 00:17] LABS: ALBUMIN < 0.6 g/dL (3.4-5.0)
[2018-03-23] MEDS ORDERED: POTASSIUM CHLORIDE 20 MEQ TAB.PRT.SR PO ONE (00:30)
--- NOTE | 2018-03-23 00:56 | NUR ---
SPOKE TO ZEN IYER, [facility], WAITING FOR MD CALL BACK.
--- NOTE | 2018-03-23 01:00 | NUR ---
PT UNABLE TO PROVIDE URINE AT THIS TIME. MD AMAYA
--- NOTE | 2018-03-23 01:07 | NUR ---
DR. FANG SPEAKING TO DR. AGUILAR, PER DR. AGUILAR OKAY TO ADMIT.
--- NOTE | 2018-03-23 01:10 | NUR ---
CALLED FOR TELE BED
--- NOTE | 2018-03-23 01:11 | NUR ---
CALLED [facility] FOR PANEL ADMISSION. WAITING FOR DR. PEREZ FOR CALL BACK.
--- NOTE | 2018-03-23 01:12 | NUR ---
DR. PEREZ SPEAKING TO DR. FANG REGARDING ADMISSION.
[2018-03-23] MEDS ORDERED: ACETAMINOPHEN 325 MG TABLET PO PRN (01:30)
[2018-03-23] MEDS ORDERED: HYDROCODONE/APAP 5/325MG 1 EACH TABLET PO PRN (01:30)
[2018-03-23] MEDS ORDERED: Z GUARD REMEDY 2 OZ OINT TP PRN (01:30)
[2018-03-23] MEDS ORDERED: MORPHINE SULFATE INJ 2 MG/ML DISP.SYRIN IV PRN (01:30)
[2018-03-23] MEDS ORDERED: ONDANSETRON HCL/PF 4 MG/2 ML VIAL IVP PRN (01:30)
[2018-03-23] MEDS ORDERED: ZOLPIDEM TARTRATE 5 MG TABLET PO PRN (01:30)
[2018-03-23] MEDS ORDERED: MAGNESIUM HYDROXIDE 30 ML UDC PO PRN (01:30)
[2018-03-23] MEDS ORDERED: MAG HYDROX/AL HYDROX/SIMETH 30 ML UDC PO PRN (01:30)
--- NOTE | 2018-03-23 02:21 | NUR ---
GAVE REPORT TO ELISA FOX FOR AJ
--- NOTE | 2018-03-23 02:30 | NUR ---
TRANSFERRED TO [facility]- PER [facility]
[2018-03-23 02:53] VITALS: BP 130/62
--- NOTE | 2018-03-23 02:53 | NUR ---
ADMISSION NOTES: RECEIVED REPORT FROM CHARLI FOX. PT BROUGHT BY EMT DUE TO DRUG OVERDOSE, PER REPORT PT TOOK 5-8 PILLS OF CHLORPROMAZINE, AND 5MG OF VERSED GIVEN IN [employer]ORE [employer]ING [employer]OCI[employer]. UPON REPORT, ER SAID PT INITIALLY WAS YELLING, SCREAMING, UNCOOPERATIVE AND COMBATIVE, BUT AFTER A WHILE WHEN VERSED KICKED IN, PT STARTED TO CALM DOWN AND FELL ASLEEP. PT WAS BROUGHT TO THE UNIT VIA GURNEY. SINCE THEN, PT BEEN ASLEEP/KNOCKED OUT. PER DR PEREZ TO ADMIT THE PT UNDER MED SURG, DIRECTOR STYLE AWARE OF THIS. VS TAKEN AND RECORDED. UNABLE TO GET PERTINENT INFORMATION DUE TO PT'S CONDITION/STATUS AT THIS TIME. PT ON 95% SPO2 ON 2L NC. WILL FOLLOW UP IN AM, TO COMPLETE THE ADMISSION PROCESS, MOST QUESTIONS LEFT BLANK DUE IM UNABLE TO INTERVIEW THE PT. VS TAKEN AND RECORDED. REMOVED SHARP OBJECTS OR ANYTHING THAT COULD HARM THE PT, OR CAN BE USE BY PT TO HURT HIMSELF. NO SITTER ORDER, BUT I PERSONALLY ASKED TIFFANIE DAVID AND MERRITT TO BE A SITTER FOR CLOSE OBSERVATION OF THE PT. VS TAKEN AND RECORDED. UNABLE TO PERFORM SKIN CHECK, THIS NEEDS PERMISSION/CONSENT FROM PT, AND DUE TO PT'S CONDITION AT THIS TIME, THIS IS UNABLE TO BE DONE, ONLY SEE PT'S FEET, HEELS AND NOTED CALLUSES, BACK IS CLEAN/SKIN IS INTACT, EXPOSED DUE TO PT'S OWN STREET CLOTHES AND PT LAYING ON HER LEFT SIDE, EXPOSING HALF OF HER BACK AND SACRAL AREA. ARMS ARE CLEAN, NO SKIN ISSUES NOTED. THESE WERE DONE WITH 2CNA PRESENT AT BED SIDE. INVENTORY OF BELONGINGS COMPLETED BY TIFFANIE DAVID. SAFETY PRECAUTIONS FOR FALL INITIATED, CALL LIGHT IN REACH, WILL CONTINUE MONITORING PT.
[2018-03-23 03:00] VITALS: BP 130/62
[2018-03-23] MEDS: IV NS 0.9% 1,000 ML IV PRN (03:06)
--- NOTE | 2018-03-23 03:30 | NUR ---
RN NOTES: PT STILL SLEEPING, NOT AROUSABLE, BUT BREATHING, RESPIRATION EVEN AND UNLABORED, NO FACIAL GRIMACE NOTED.
--- NOTE | 2018-03-23 03:45 | NUR ---
RN NOTES: PLACED ON SEIZURE PRECAUTIONS, SUCTION SET UP SECURED
--- NOTE | 2018-03-23 04:32 | NUR ---
RN NOTES: RECEIVED CALL FROM CHARLIE OF [facility] ASKING ABOUT PT'S CONDITION, VS, LABS, TOXICOLOGY,AND EKG, EVERYTHING RELAYED TO CHARLIE, PER [facility] OF [facility], NO RECOMMENDATION NEEDED AT THIS TIME AND THAT HE WILL CLOSED PT'S CASE. HE ADDED THAT IN CASE THERE WILL BE ANY CHANGES IN PT'S CONDITION, CALL [facility] AT ANYTIME. THESE WERE RELAYED TO RUDDY DE LA GARZA
--- NOTE | 2018-03-23 05:26 | NUR ---
RN NOTES: PT SLEEPING, SNORING, BUT AROUSES TO TACTILE STIMULI, DOESNT WANT TO OPEN HER EYES, BUT REFUSED BLOOD SUGAR CHECK, STATED NO, AND RETRACT HER HAND. EDUCATION PROVIDED TO PT.
--- NOTE | 2018-03-23 05:47 | NUR ---
RN NOTES: PT AROUSABLE TO TACTILE STIMULI, ASKED PERMISSION FOR SKIN ASSESSMENT, BUT PT REFUSED, ALSO ENCOURAGE PT TO VOID, PT REFUSED.
--- NOTE | 2018-03-23 06:50 | NUR ---
rn closing note: pt in bed, still sleeping, but arouses to tactile stimuli, remains on 2l via nc, respiration even and unlabored. iv access remains patent and flushing well, infusing with ns at 75ml/hr. for psych consult, wound care consult. vs remains stable, needs attended. safety precautions for fall remains engaged, call light in reach, will endorse to day rn for continuity of care
--- NOTE | 2018-03-23 06:56 | NUR ---
rn notes: sitter at bed side
--- NOTE | 2018-03-23 07:00 | NUR ---
MS RN NOTES PATIENT IN EYES CLOSED, EASILY AROUSABLE, VERBALLY RESPONSIVE. NO ACUTE DISTRESS NOTED. BREATHING UNLABORED. IV ACCESS PATENT AND INTACT. SITTER AT BEDSIDE. SAFETY MEASURES IN PLACE. CALL LIGHT WITHIN REACH. WILL CONTINUE TO MONITOR ACCORDINGLY.
[2018-03-23] MEDS ORDERED: MORPHINE SULFATE INJ 4 MG/ML DISP.SYRIN IV PRN (07:44)
[2018-03-23] MEDS: PANTOPRAZOLE 40 MG VIAL IV SCH (11:56)
--- NOTE | 2018-03-23 14:04 | NUR ---
Social service consult requested for overdose. Pt. is a 33 year old female who was admitted to [facility] for a drug overdose and homelessness. SW attempted to meet with the pt., however pt. was given Versed medication earlier and is extremely drowsy and unable to provide any history at this time. SW to reassess pt. when she is more alert.
--- NOTE | 2018-03-23 16:10 | NUR ---
Patient was brought in to ED due possible drug overdose, was agitated in the field and Versed was administered by paramedics. Unable to interview patient as she is sedated/lethargic due to versed. Per report she is homeless and was from a [facility]. Will reassess patient once more awake and alert. dish room worker is following case.
--- NOTE | 2018-03-23 18:58 | NUR ---
MS RN NOTES CLARIFIED WITH SRI TAVAREZ REGARDING INSULIN SLIDING CARE WITH ORDERS FOR MILD SLIDING CARE ACHS, NOTED AND CARRIED OUT.
[2018-03-23] MEDS ORDERED: DEXTROSE 50%-WATER 50 ML DISP.SYRIN IV PRN (19:00)
[2018-03-23] MEDS ORDERED: INSULIN REGULAR, HUMAN 100 UNIT/ML 3 ML VIAL SQ PRN (19:00)
--- NOTE | 2018-03-23 19:00 | NUR ---
MS RN NOTES PATIENT IN EYES CLOSED, EASILY ARAOUSABLE, VERBALLY RESPONSIVE. PATIENT IN STABLE CONDITION. NO ACUTE DISTRESS NOTED. BREATHING UNLABORED. IV ACCESS PATENT AND INTACT. SITTER AT BEDSIDE. NEEDS ATTENDED AND ANTICIPATED. SAFETY MEASURES IN PLACE. CALL LIGHT WITHIN REACH. WILL CONTINUE TO MONITOR ACCORDINGLY.
--- NOTE | 2018-03-23 19:30 | NUR ---
RECEIVED PATIENT IN BED ASLEEP; AROUSABLE. AO X 1-2, ABLE TO MAKE NEEDS KNOWN. NO ACUTE DISTRESS NOTED. DENIES ANY PAIN AT THIS TIME. CALM AT THIS TIME TIME. IV SITE PATENT, INTACT; IVF INFUSING ORDERED. NO SYMPTOMS OF HYPER/HYPOGLYCEMIA. SAFETY REMINDERS GIVEN. ON LOW BED WITH BILATERAL UPPER SIDE RAILS UP. CALL LAW WITHIN EASY REACH. SITTER AT BEDSIDE. And WILL CONTINUE TO MONITOR.
[2018-03-23 20:00] VITALS: BP 133/86
[2018-03-23] MEDS: BLOOD SUGAR DIAGNOSTIC 1 EACH STRIP IN SCH (22:00)
[2018-03-24] MEDS: IV NS 0.9% 1,000 ML IV PRN (00:56)
--- NOTE | 2018-03-24 06:30 | NUR ---
PATIENT ASLEEP, EASILY AROUSABLE. RESPIRATIONS EVEN. NO SIGNS OF PAIN NOTED. NO SYMPTOMS OF HYPER/HYPOGLYCEMIA. IVF INFUSING ORDERED. NEEDS ATTENDED. PATIENT REFUSED MORNING HYGIENE CARE. SAFETY PRECAUTIONS AND COMFORT MEASURES IN PLACE. WILL GIVE REPORT TO DAY SHIFT FOR CONTINUITY OF CARE.
[2018-03-24] MEDS: BLOOD SUGAR DIAGNOSTIC 1 EACH STRIP IN SCH ×2 (06:37→12:33)
--- NOTE | 2018-03-24 07:05 | NUR ---
MS RN NOTES PATIENT IN BED EYES CLOSED EASILY AROUSABLE, RESPOND TO VERBAL AND TACTILE STIMULI. NO ACUTE DISTRESS NOTED, BREATHING UNLABORED. IV ACCESS PATENT AND INTACT, NO REDNESS OR SWELLING NOTED. 1:1 SITTER AT BEDSIDE. SAFETY MEASURES IN PLACE. CALL LIGHT WITHIN REACH. WILL CONTINUE TO MONITOR ACCORDINGLY.
[2018-03-24] MEDS ORDERED: LEVOTHYROXINE SODIUM 100 MCG TABLET PO SCH (07:30)
[2018-03-24 08:00] VITALS: BP 115/72
[2018-03-24] MEDS ORDERED: METFORMIN 500 MG TABLET PO SCH (09:00)
[2018-03-24] MEDS ORDERED: FOLIC ACID 1 MG TABLET PO SCH (09:00)
[2018-03-24] MEDS ORDERED: BENAZEPRIL HCL 5 MG TABLET PO SCH (09:00)
--- NOTE | 2018-03-24 10:47 | NUR ---
MS RN NOTES SEEN AND EVALUATED BY DR TOLENTINO WITH NEW ORDERS MADE. NOTED AND CARRIED OUT.
[2018-03-24] MEDS: PANTOPRAZOLE 40 MG VIAL IV SCH (11:32)
[2018-03-24 11:38] LABS: CALCIUM, SERUM 8.3 mg/dL (8.5-10.1); CREATININE 0.6 mg/dL (0.6-1.3); MAGNESIUM 1.8 mg/dL (1.8-2.4); PHOSPHORUS 3.6 mg/dL (2.5-4.9); POTASSIUM 3.7 mmol/L (3.5-5.1)
[2018-03-24 11:46] LABS: THYROID STIMULATING HORMONE 2.83 uIU/mL (0.358-3.74)
[2018-03-24 11:48] LABS: HEMATOCRIT 36 % (33-45); HEMOGLOBIN 11.1 g/dL (11.5-14.8); MEAN CORPUSCULAR HGB CONC 30 g/dl (31.0-36.0); MEAN CORPUSCULAR VOLUME 74 fL (82-100); PLATELET COUNT (AUTO) 311 /CMM (150-450); RED BLOOD CELL COUNT(AUTO) 4.92 MIL/uL (4.0-5.2); WHITE BLOOD COUNT (AUTO) 8.8 K/uL (4.3-11.0)
[2018-03-24 12:26] LABS: LYMPHOCYTES % (MANUAL) 34 % (16-48); MONOCYTES % (MANUAL) 7 % (0-11.0); NEUTROPHILS % (MANUAL) 59 (42-76)
[2018-03-24 12:29] LABS: APPEARANCE,URINE CLOUDY (CLEAR); BILIRUBIN,URINE NEGATIVE (NEGATIVE); BLOOD, URINE 2+ Ery/uL (NEGATIVE); COLOR,URINE YELLOW (YELLOW); KETONES,URINE NEGATIVE (NEGATIVE); LEUKOCYTE ESTERASE ,URINE TRACE (NEGATIVE); NITRITE, URINE POSITIVE (NEGATIVE); PROTEIN,URINE NEGATIVE (NEGATIVE); UGLUCOSE NEGATIVE (NEGATIVE); UROBILINOGEN,URINE 0.2 EU/dL (0.2)
--- NOTE | 2018-03-24 12:30 | NUR ---
MS RN NOTES PATIENT SITTING IN BED, EATING LUNCH. NO ACUTE DISTRESS NOTED. NEEDS ATTENDED AND ANTICIPATED. SAFETY MEASURES IN PLACE.
[2018-03-24 13:08] LABS: BACTERIA,URINE Many /HPF (None Seen); SQUAMOUS EPITHELIAL CELL,UR Few /HPF (None Seen); WBC,URINE 0-2 /HPF (0-3)
--- NOTE | 2018-03-24 16:50 | NUR ---
MS RN NOTES PATIENT WANTS TO GO HOME, EXPLAINED RISK AND BENEFITS OF GOING HOME AGAINST MEDICAL ADVICE. PATIENT REFUSED TO STAY AND SAID SHE WILL SEE HER OWN DOCTOR AND ALREADY HAVE APPOINTMENT THIS WEEK. PATIENT SIGNED AGAINST MEDICAL ADVICE FORM. PATIENT GAVE ADDRESS WHERE SHE WILL STAY AT [address] [place], [place] [id number] AND SAID SHE HAS BUS PASS AND WILL TAKE THE BUS. PATIENT IN STABLE CONDITION, ALERT ORIENTED X 3, NO ACUTE DISTRESS NOTED, BREATHING UNLABORED, NO SOB NOTED. PATIENT DENIED SUICIDAL IDEATION. CASE MANAGEMENT SEEN PATIENT. ALL BELONGINGS ACCOUNTED FOR. IV ACCESS REMOVED, NO BLEEDING, NO REDNESS OR SWELLING NOTED. NOTIFIED DR TOLENTINO.
== END 2018-03-24 16:45 | disposition left against medical advice (07) | DRG 812 ==
LOC: ER 22:46 → TELE 03-23 02:21 → MED 03-23 07:26
PROVIDERS: ADMIT Internal Medicine; ATTEND Internal Medicine
DX: T43.3X1A Poisoning by phenothiazine antipsychotics and neuroleptics, accidental (unintentional), initial encounter (principal); J96.00 Acute respiratory failure, unspecified whether with hypoxia or hypercapnia; E43 Unspecified severe protein-calorie malnutrition; E66.01 Morbid (severe) obesity due to excess calories; F20.9 Schizophrenia, unspecified; E11.9 Type 2 diabetes mellitus without complications; D72.829 Elevated white blood cell count, unspecified; E03.9 Hypothyroidism, unspecified; Y92.009 Unspecified place in unspecified non-institutional (private) residence as the place of occurrence of the external cause; F32.9 Major depressive disorder, single episode, unspecified; E87.6 Hypokalemia; N32.81 Overactive bladder; K21.9 Gastro-esophageal reflux disease without esophagitis; G89.29 Other chronic pain; F41.9 Anxiety disorder, unspecified; Z79.84 Long term (current) use of oral hypoglycemic drugs; J45.909 Unspecified asthma, uncomplicated; Z88.0 Allergy status to penicillin; Z68.42 Body mass index [BMI] 45.0-49.9, adult; I10 Essential (primary) hypertension; Z59.0 Homelessness
CPT/HCPCS: 36415; 71045-TC; 80048-TC; 80076-TC; 80164-TC; 80305; 81000-TC; 82140-TC; 82962-TC; 83735-TC; 84100-TC; 84439-TC; 84443-TC; 84702-TC; 85025-TC; 87081-TC; 87086-TC; 87186-TC; A4606; C9113; G0480; J1815; J7030; Z7610

== ENCOUNTER 2018-06-13 22:46 | Emergency (ER) | payer OTHER ==
[~2018-06-13] VITALS: Ht 170.2 cm; Wt 109.3 kg
[2018-06-13 22:50] VITALS: BP 130/75
--- NOTE | 2018-06-13 23:39 | NUR ---
pt returned from [place]
[2018-06-14] MEDS ORDERED: TRAMADOL HCL 50 MG TABLET PO ONE (00:30)
[2018-06-14] MEDS ORDERED: TRAMADOL HCL 50 MG TABLET ONE (01:31)
== END 2018-06-14 02:14 | disposition home or self-care (01) ==
LOC: ER 22:53
DX: G89.29 Other chronic pain (principal); M25.561 Pain in right knee; E11.9 Type 2 diabetes mellitus without complications; I10 Essential (primary) hypertension; K21.9 Gastro-esophageal reflux disease without esophagitis; F20.9 Schizophrenia, unspecified; F32.9 Major depressive disorder, single episode, unspecified; G40.909 Epilepsy, unspecified, not intractable, without status epilepticus; F17.200 Nicotine dependence, unspecified, uncomplicated; E03.9 Hypothyroidism, unspecified; Z88.0 Allergy status to penicillin; Z88.1 Allergy status to other antibiotic agents; Z88.8 Allergy status to other drugs, medicaments and biological substances; Z59.0 Homelessness; Z79.84 Long term (current) use of oral hypoglycemic drugs; Z79.899 Other long term (current) drug therapy
CPT/HCPCS: 73564-TC; A4606; Z7610

== ENCOUNTER 2018-06-14 12:55 | Emergency (ER) | payer OTHER ==
[~2018-06-14] VITALS: Ht 170.2 cm; Wt 109.3 kg
[2018-06-14 13:05] VITALS: BP 160/92
== END 2018-06-14 13:35 | disposition home or self-care (01) ==
LOC: ER 12:57
DX: M25.561 Pain in right knee (principal); I10 Essential (primary) hypertension; K21.9 Gastro-esophageal reflux disease without esophagitis; E11.9 Type 2 diabetes mellitus without complications; F32.9 Major depressive disorder, single episode, unspecified; E03.9 Hypothyroidism, unspecified; F17.200 Nicotine dependence, unspecified, uncomplicated; F25.9 Schizoaffective disorder, unspecified; Z98.890 Other specified postprocedural states; Z88.0 Allergy status to penicillin; Z88.1 Allergy status to other antibiotic agents; Z88.8 Allergy status to other drugs, medicaments and biological substances; Z59.0 Homelessness; Z79.899 Other long term (current) drug therapy; Z79.84 Long term (current) use of oral hypoglycemic drugs
CPT/HCPCS: 99283; A4606; Z7610